=== PATIENT | male | born 1960 | race Caucasian/White ===

== ENCOUNTER 2019-09-14 17:43 | Emergency (ER) | payer MEDICAID ==
[2019-09-14 17:53] VITALS: BP 189/115
[2019-09-14 19:13] LABS: ABS Basophils 0.1 10^3/ul (0-0.2); ABS Eosinophils 0.2 10^3/ul (0-0.6); ABS Lymphocytes 2.1 10^3/ul (1.0-4.8); ABS Neutrophils 7.4 10^3/ul (1.5-7.7); Eosinophil % 1.9 %; Hematocrit 46 % (42-52); Hemoglobin 15.9 g/dL (14.0-18.0); Lymphocyte % 19.9 %; Mean Corpuscular HGB Conc 34 g/dL (31-36); Mean Corpuscular Hemoglobin 32 pg (27-31); Mean Corpuscular Volume 92 fL (80-94); Mean Platelet Volume 7.6 fL (7.4-10.4); Platelet Count 404 10^3/uL (150-450); Red Blood Count 5.02 10^6 /uL (4.18-5.48); Red Cell Distribution Width 13 % (10-15); White Blood Count 10.8 10^3/uL (3.5-10.8)
[2019-09-14 19:29] LABS: Albumin 4.3 g/dL (3.2-5.2); Albumin/Globulin Ratio 1.2 (1-3); BUN/Creatinine Ratio 12.5 (8-20); Calcium 9.6 mg/dL (8.6-10.3); EGFR African American 81.2 (>60); EGFR Non-African American 67.1 (>60); Globulin 3.7 g/dL (2-4); Potassium 4.5 mmol/L (3.5-5.0); Total Bilirubin 0.6 mg/dL (0.2-1.0)
== END 2019-09-14 20:30 | disposition left against medical advice (07) ==
LOC: ED 17:43
DX: Z53.21 Procedure and treatment not carried out due to patient leaving prior to being seen by health care provider (principal); R52 Pain, unspecified
CPT/HCPCS: 36415; 80053; 85025; 99281

== ENCOUNTER 2019-09-14 22:36 | Emergency (ER) | payer MEDICAID ==
--- NOTE | 2019-09-15 03:41 | ED ---
Abdominal Pain/Male - HPI Summary HPI Summary: Patient is a 59 y/o diabetic male presenting to [facility] with complaints abdominal pain and altered mental status. He states that he has not had insulin for the past ten days due to conflict with his insurance. Patient is on Basaglair and Metformin. He has not measured his sugars as he does not have his glucometer. Last sugar check was ten days ago as well. He notes he is typically hyperglycemic. Patient characterizes his altered mental status as feeling "goofy ". Per triage, "Pt states his insurance was changed from [place] to Medicaid and he is also in the middle of a workman's comp case. States he knew he was getting low on meds and attempted to have them filled but medicaid did not approve the fill". Patient is originally from [place] but is in [place] house- sitting for his son. On triage, pain is rated 5/10, nothing is noted to aggravate/alleviate Sx. Home medications and allergies are reviewed. - History of Current Complaint Chief Complaint: EDGeneral Stated Complaint: LT SIDE PAIN,DIABETIC ISSUES PER PT Time Seen by Provider: 09/15/19 02:34 Hx Obtained From: Patient Onset/Duration: Still Present Timing: Constant Severity Currently: Moderate Pain Intensity: 5 Pain Scale Used: 0-10 Numeric Aggravating Factor(s): Nothing Alleviating Factor(s): Nothing Associated Signs And Symptoms: Positive: Other - AMS - Allergies/Home Medications Allergies/Adverse Reactions: Allergies Allergy/AdvReac Type Severity Reaction Status Date / Time No Known Allergies Allergy Verified 09/14/19 17:53 Home Medications: Home Medications DULoxetine DR TOMPKINS* [Cymbalta CAP*] 60 mg PO DAILY 09/15/19 [History Confirmed ] Insulin Glargine,Hum.rec.anlog [Basaglar Kwikpen U-100] 100 units SUBCUT BEDTIME 09/15/19 [History Confirmed 09/15/19] Metformin HCl 1,000 mg PO BID 09/15/19 [History Confirmed 09/15/19] PMH/Surg Hx/FS Hx/Imm Hx Endocrine/Hematology History: Reports: Hx Diabetes Sensory History: Denies: Hx Legally Blind, Hx Deafness Opthamlomology History: Denies: Hx Legally Blind EENT History: Denies: Hx Deafness Infectious Disease History: No Infectious Disease History: Denies: Traveled Outside the [place] in Last 30 Days - Social History Alcohol Use: None Substance Use Type: Reports: None Smoking Status (MU): Never Smoked Tobacco Review of Systems - ROS Summary Review of Systems Summary: Home Medications Medication Instructions Recorded Confirmed Type DULoxetine DR TOMPKINS* [Cymbalta CAP*] 60 mg PO DAILY 09/15/19 09/15/19 History Insulin Glargine,Hum.rec.anlog 100 units SUBCUT BEDTIME 09/15/19 09/15/19 History [Basaglar Kwikpen U-100] Metformin HCl 1,000 mg PO BID 09/15/19 09/15/19 History Positive: Abdominal Pain Neurological: Other - positive - reported AMS, states that he feels "goofy" All Other Systems Reviewed And Are Negative: Yes Physical Exam - Summary Physical Exam Summary: General: Well-developed, Well-nourished Male. No acute distress. HEENT: Normocephalic, Atraumatic. Eyes: Conjuctiva normal, PERRL. Ears: TMs within normal limits. Nares: (-) discharge, (-) erythema. Oropharynx: Clear, mucous membranes moist, (-) exudates. Neck: Soft, FROM, (-) lymphadenopathy, (-) thyromegaly, (-) JVD. Cardiovascular: Normal sinus rhythm, (-) murmur. Lungs: Clear to auscultation bilaterally (-) wheezes, (-) rales, (-) rhonchi. Abdomen: Soft, non-tender, non-distended, (-) organomegaly, normal bowel sounds. Back: (-) CVA tenderness Extremities: No edema. Skin: Warm, dry, (-) rash. Neuro: Alert and oriented x3, no focal deficits. Psychiatric: Mood normal, affect normal. Triage Information Reviewed: Yes Vital Signs On Initial Exam: Initial Vitals Temp Pulse Resp BP Pulse Ox 97.2 F 72 20 186/104 97 09/14/19 22:45 09/14/19 22:45 09/14/19 22:45 09/14/19 22:45 09/14/19 22:45 Vital Signs Reviewed: Yes Procedures - Sedation Patient Received Moderate/Deep Sedation with Procedure: No Diagnostics - Vital Signs Vital Signs Temp Pulse Resp BP Pulse Ox 09/15/19 02:40 66 146/73 96 09/15/19 02:09 63 170/95 97 09/15/19 02:00 64 99 09/15/19 01:58 70 191/112 98 09/15/19 01:39 66 203/104 96 09/15/19 01:38 68 97 09/14/19 22:45 97.2 F 72 20 186/104 97 - Laboratory Lab Results: Lab Results 09/15/19 Range/Units 02:38 POC Glucose (mg/dL) 248 H (70-100) mg/dL Lab Statement: Any lab studies that have been ordered have been reviewed, and results considered in the medical decision making process. Abdominal Pain Male Course/Dx - Course Course Of Treatment: 59 year old male with insulin dependent diabetes presents wiht difficulty obtaining his insulin. also not checking his sugars. fingerstick >300. During ED course, patient received 100 units SQ of Lantus. advised patient to call pcp to obtain prescription for cheaper insulin. social work consult to find out why medicaid not paying for insulin. follow up sooner for any worsening symptoms - Diagnoses Provider Diagnoses: Noncompliance with medication regimen, Diabetes mellitus with hyperglycemia Discharge ED - Sign-Out/Discharge Documenting (check all that apply): Patient Departure - discharge - Discharge Plan Condition: Stable Disposition: HOME Patient Education Materials: Diabetic Hyperglycemia (ED) Referrals: [facility] [Outside] Additional Instructions: CALL YOUR PRIMARY CARE PHYSICIAN TO GET PUT ON A CHEAPER VERSION OF INSULIN. OBTAIN A NEW GLUCOMETER WELL. PLEASE RETURN TO ED FOR ANY NEW OR WORSENING SYMPTOMS. PLEASE FOLLOW UP WITH YOUR PRIMARY CARE PHYSICIAN WITHIN THREE DAYS. - Billing Disposition and Condition Condition: STABLE Disposition: Home - Attestation Statements Document Initiated by Estella: Yes Documenting Scribe: HEIDY LEMON Provider For Whom Estella is Documenting (Include Credential): JESUS ALBERTO LILLY MD Scribe Attestation: IHEIDY, scribed for JESUS ALBERTO LILLY MD on 09/15/19 at 0610. Scribe Documentation Reviewed: Yes Provider Attestation: The documentation as recorded by the HEIDY dennis accurately reflects the service I personally performed and the decisions made by me, JESUS ALBERTO LILLY MD Status of Scribe Document: Viewed
[2019-09-15 04:10] LABS: Urine Benzodiazepine Screen None Detected (None Detect); Urine Opiates Screen None Detected (None Detect)
[2019-09-15] MEDS ORDERED: Insulin GLARGINE(*) 1 UNITS UNIT SUBCUT ONE (04:18)
[2019-09-15 04:41] VITALS: BP 151/112
== END 2019-09-15 04:41 | disposition home or self-care (01) ==
LOC: ED 22:36
DX: E11.65 Type 2 diabetes mellitus with hyperglycemia (principal); Z91.14 Patient's other noncompliance with medication regimen; Z79.4 Long term (current) use of insulin
CPT/HCPCS: 36415; 80307; 80320; 83605; 99283; A9270-GY; G0480

== ENCOUNTER 2019-09-17 11:06 | Emergency (ER) | payer MEDICAID ==
[2019-09-17] MEDS ORDERED: NS 0.9% 1000 ML** 2,000 ML IV ONE (12:11)
--- NOTE | 2019-09-17 12:11 | ED ---
HPI Diabetic - HPI Summary HPI Summary: This pt is a 59 y/o male, with hx of DM, presenting to [facility] for hyperglycemia after being noncompliant with medications. Pt reports he has not been taking his medications for diabetes because he can't afford them as he is currently in an insurance dispute. He states he is on worker's comp and his insurance was switched from [place] to Medicaid and Medicaid won't refill his prescriptions because he is on worker's comp. Pt notes he does not have insulin, metformin, and test strips. He states he ran out of his Insulin about 1 week ago and has been unable to test his sugars due to not having test strips. Pt reports when his sugars have been above 250 in the past it affects his body severely. Today pt notes he has been drooling, has been unable to focus, stumbling, and feeling as if he is "drunk." Denies fever, chest pain, SOB. Additionally reports he has pain on his left side, described as stabbing, that radiates to the front. He states an acid taste in his mouth. Pt is from [place], [place] but is [place] his son's house. He states he was told rectifying his insurance could take up to 14 business days. - History Of Current Complaint Chief Complaint: EDDiabeticProb Time Seen by Provider: 09/17/19 12:03 Hx Obtained From: Patient Onset/Duration: Lasting Days, Still Present Timing: Days Character: Alert, Other - unable to focus, stumbling, feeling "drunk" Aggravating: Non-compliant Alleviating: Nothing - Allergies/Home Medications Allergies/Adverse Reactions: Allergies Allergy/AdvReac Type Severity Reaction Status Date / Time No Known Allergies Allergy Verified 09/17/19 11:20 Home Medications: Home Medications Atorvastatin* [Lipitor*] 20 mg PO DAILY 09/17/19 [History Confirmed 09/17/19] Insulin Glargine,Hum.rec.anlog [Karmenagltita Ghosh U-100] 100 units SUBCUT BEDTIME 09/17/19 [History Confirmed 09/17/19] Levothyroxine TAB* [Synthroid TAB*] 25 mcg PO DAILY 09/17/19 [History Confirmed 09/17/19] Losartan TAB* [Cozaar TAB*] 25 mg PO DAILY 09/17/19 [History Confirmed 09/17/19] metFORMIN* [Glucophage 1000 MG TAB *] 1,000 mg PO BID 09/17/19 [History Confirmed 09/17/19] PMH/Surg Hx/FS Hx/Imm Hx Endocrine/Hematology History: Reports: Hx Diabetes, Hx Thyroid Disease Cardiovascular History: Reports: Hx Hypercholesterolemia Denies: Hx Hypertension Sensory History: Denies: Hx Legally Blind, Hx Deafness Opthamlomology History: Denies: Hx Legally Blind Infectious Disease History: No Infectious Disease History: Denies: Traveled Outside the US in Last 30 Days - Family History Known Family History: Positive: Diabetes - Social History Alcohol Use: None Substance Use Type: Reports: None Smoking Status (MU): Never Smoked Tobacco Review of Systems Negative: Fever ENT: Other - POSITIVE: acid taste in mouth Negative: Chest Pain Negative: Shortness Of Breath Musculoskeletal: Other - POSITIVE: left sided pain Neurological: Other - POSITIVE: unable to focus, stumbling, feeling "drunk" All Other Systems Reviewed And Are Negative: Yes Physical Exam - Summary Physical Exam Summary: GENERAL: Patient is a well-developed and nourished male who is lying comfortable in the stretcher. Patient is not in any acute respiratory distress. HEAD AND FACE: No signs of trauma. No ecchymosis, hematomas or skull depressions. No sinus tenderness. EYES: PERRLA, EOMI x 2, No injected conjunctiva, no nystagmus. EARS: Hearing grossly intact. Ear canals and tympanic membranes are within normal limits. MOUTH: Oropharynx within normal limits. NECK: Supple, trachea is midline, no adenopathy, no JVD, no carotid bruit, no c- spine tenderness, neck with full ROM. CHEST: Symmetric, no tenderness at palpation LUNGS: Clear to auscultation bilaterally. No wheezing or crackles. CVS: Regular rate and rhythm, S1 and S2 present, no murmurs or gallops appreciated. ABDOMEN: Soft, non-tender. No signs of distention. No rebound no guarding, and no masses palpated. Bowel sounds are normal. EXTREMITIES: FROM in all major joints, no edema, no cyanosis or clubbing. NEURO: Alert and oriented x 3. No acute neurological deficits. Speech is normal and follows commands. SKIN: Dry and warm Triage Information Reviewed: Yes Vital Signs On Initial Exam: Initial Vitals Temp Pulse Resp BP Pulse Ox 97.8 F 76 18 182/115 98 09/17/19 11:10 09/17/19 11:10 09/17/19 11:10 09/17/19 11:10 09/17/19 11:10 Vital Signs Reviewed: Yes Diagnostics - Vital Signs Vital Signs Temp Pulse Resp BP Pulse Ox 09/17/19 11:10 97.8 F 76 18 182/115 98 - Laboratory Result Diagrams: 09/17/19 12:55 09/17/19 12:55 Lab Statement: Any lab studies that have been ordered have been reviewed, and results considered in the medical decision making process. Diabetic Course/Dx - Course Assessment/Plan: This patient is a 59-year-old male who presents to the emergency department with a chief complaint of having increased sugars. The patient reports that he has a history of diabetes however he has ran out of his medications because he is losing his medical insurance. He reports polydipsia, polyuria and polyphagia. In the ED course the patient was given IV fluids. Blood work without any significant abnormality except for sodium 132, chloride 98, glucose 374. Urinalysis is negative for UTI. In the ED course the patient was given IV fluids and insulin. 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 FS before discharge is 259. I discussed all the findings and test results with the patient. Patient was instructed to return to the emergency room immediately if any of the symptoms return worsens. Plan of care was discussed with the patient and understands and agrees. All questions were answered at patient satisfaction. There were no further complaints or concerns. Lung exam before discharge: CTA B/L. Good air exchange. No wheezing or crackles heard. CVS: S1 and S2 present. No murmurs appreciated. Patient is alert and oriented x 3. Patient is hemodynamically stable. Patient will be discharged home with follow up from his PCP in the next 2-3 days. - Diagnoses Differential Dx: Diabetic Ketoacidosis, Hyperglycemia, Hyperosmolar State, Hypoglycemia Provider Diagnoses: Hyperglycemia, Uncontrolled diabetes mellitus Discharge ED - Sign-Out/Discharge Documenting (check all that apply): Patient Departure - Discharge home - Discharge Plan Condition: Stable Disposition: HOME Patient Education Materials: Diabetic Hyperglycemia (ED) Referrals: [facility] [Outside] Additional Instructions: FOLLOW UP WITH YOUR PRIMARY CARE PROVIDER IN 2-3 DAYS. If you don't have one, please follow up with [facility]. RETURN TO THE EMERGENCY DEPARTMENT FOR ANY WORSENING OR NEW SYMPTOMS. - Billing Disposition and Condition Condition: STABLE Disposition: Home - Attestation Statements Document Initiated by Estella: Yes Documenting Scribe: Emmy Reyes Provider For Whom Estella is Documenting (Include Credential): Ketan Belle MD Scribe Attestation: ImEmy, scribed for Ketan Belle MD on 09/18/19 at 0813. Scribe Documentation Reviewed: Yes Provider Attestation: The documentation as recorded by the Emmy dennis accurately reflects the service I personally performed and the decisions made by me, Ketan Belle MD Status of Scribe Document: Viewed
[2019-09-17 13:04] LABS: ABS Basophils 0.1 10^3/ul (0-0.2); ABS Eosinophils 0.1 10^3/ul (0-0.6); ABS Lymphocytes 1.6 10^3/ul (1.0-4.8); ABS Monocytes 0.8 10^3/ul (0-0.8); ABS Neutrophils 6.5 10^3/ul (1.5-7.7); Eosinophil % 1.6 %; Hematocrit 47 % (42-52); Hemoglobin 15.9 g/dL (14.0-18.0); Lymphocyte % 17.8 %; Mean Corpuscular HGB Conc 34 g/dL (31-36); Mean Corpuscular Hemoglobin 31 pg (27-31); Mean Corpuscular Volume 92 fL (80-94); Mean Platelet Volume 7.6 fL (7.4-10.4); Platelet Count 344 10^3/uL (150-450); Red Blood Count 5.06 10^6 /uL (4.18-5.48); Red Cell Distribution Width 13 % (10-15); White Blood Count 9.1 10^3/uL (3.5-10.8)
[2019-09-17 13:09] LABS: Urine Appearance Clear; Urine Bilirubin Negative (Negative); Urine Blood Negative (Negative); Urine Color Yellow; Urine Glucose 3+(>=500 mg/dL) (Negative); Urine Ketones Negative (Negative); Urine Nitrite Negative (Negative); Urine Protein Negative (Negative); Urine Specific Gravity 1.021 (1.010-1.030); Urine Urobilinogen Negative (Negative)
[2019-09-17 13:15] LABS: Albumin 4.3 g/dL (3.2-5.2); Calcium 9.6 mg/dL (8.6-10.3); Potassium 4.6 mmol/L (3.5-5.0); Total Bilirubin 0.7 mg/dL (0.2-1.0)
[2019-09-17 13:21] LABS: BUN/Creatinine Ratio 21.1 (8-20)
[2019-09-17 13:22] LABS: Albumin/Globulin Ratio 1.3 (1-3); C Reactive Protein 3.99 mg/L (<8.01); EGFR African American 98.2 (>60); EGFR Non-African American 81.1 (>60); Globulin 3.4 g/dL (2-4); Total Protein 7.7 g/dL (6.4-8.9)
[2019-09-17] MEDS ORDERED: Insulin REGULAR(*) 1 UNITS UNIT IV PUSH ONE (13:42)
[2019-09-17 15:33] VITALS: BP 142/79
== END 2019-09-17 15:32 | disposition home or self-care (01) ==
LOC: ED 11:06
DX: E11.65 Type 2 diabetes mellitus with hyperglycemia (principal); Z79.4 Long term (current) use of insulin; E78.00 Pure hypercholesterolemia, unspecified; E07.9 Disorder of thyroid, unspecified; Z79.899 Other long term (current) drug therapy
CPT/HCPCS: 36415; 80053; 81003; 82803; 83735; 85025; 86140; 96360; 96361; 99282; J1815